=== PATIENT | male | born 1970 | race Caucasian/White ===

== ENCOUNTER 2020-08-12 09:21 | Emergency (ER) | payer SELFPAY ==
[~2020-08-12] VITALS: Ht 187.9 cm; Wt 118.0 kg
[~2020-08-12 09:21] MED LIST: CEPH500C PO; HCA25SU PR; HYDR1TAB PO; SULF1TAB38 PO
[2020-08-12 09:26] VITALS: BP 144/80
--- NOTE | 2020-08-12 09:49 | ED Lower Extremity ---
General Chief Complaint: Lower Extremity Stated Complaint: L KNEE PAIN Nursing Triage Note: AMB TO ROOM REPORTS APX 5 DAYS AGO WAS EXTENDING HIS R LEG OUT AND KNEE STRTED HURTNG. X 5 DAYS Nursing Sepsis Screen: No Definite Risk Source: patient Exam Limitations: no limitations History of Present Illness Date Seen by Provider: Aug 12, 2020 Time Seen by Provider: 09:27 Initial Comments Patient presents ER by private conveyance with chief complaint about 5 days ago he was laying in bed with some restless leg syndrome and so he decided to stret ch his knee out and he did not hear a popping sensation but he feels like he heard something in his knee because now he has pain on ambulation. No prior injury surgery or scopes to the right knee. He has a brace on it and has been using Tylenol and Mullens balm. He is not using NSAIDs. He does not have a primary care doctor yet. Allergies and Home Medications Allergies Coded Allergies: No Known Drug Allergies (Unverified , 09/27/10) Home Medications Hydrocortisone Acetate 1 Ea Supp, 1 EA ND Q8HR FOR RECTAL PAIN Prescribed by: SNEHAL LOPEZ on 05/23/12 1608 Patient Home Medication List Home Medication List Reviewed: Yes Review of Systems Constitutional: No chills, No diaphoresis EENTM: No ear discharge, No ear pain Respiratory: No cough, No phlegm Cardiovascular: No chest pain, No palpitations Gastrointestinal: No abdominal pain, No nausea Genitourinary: No discharge, No dysuria Musculoskeletal: No back pain; joint pain Past Hymeqap-Plrzhc-Ilwzhc Hx Patient Social History Alcohol Use: Occasionally Uses Smoking Status: Current Everyday Smoker Recent Infectious Disease Expo: No Past Medical History Surgeries: Yes (CYST) Respiratory: No Cardiac: No Neurological: No Genitourinary: No Gastrointestinal: No Musculoskeletal: No Endocrine: No HEENT: No Cancer: No Psychosocial: No Physical Exam Vital Signs Vital Signs - First Documented 08/12/20 09:26 Temp 35.4 Pulse 68 Resp 18 B/P (MAP) 144/80 (101) Pulse Ox 94 Capillary Refill : Less Than 3 Seconds Height, Weight, BMI Height: '" Weight: lbs. oz. kg; 33.00 BMI Method:Stated General Appearance: WD/WN, mild distress HEENT: PERRL/EOMI, pharynx normal Neck: full range of motion, normal inspection Cardiovascular: normal peripheral pulses, regular rate, rhythm Respiratory: no respiratory distress, no accessory muscle use Hips: bilateral hip non-tender, bilateral hip normal inspection, bilateral hip normal range of motion, bilateral hip no evidence of injury Legs: bilateral leg non-tender, bilateral leg normal inspection, bilateral leg normal range of motion, bilateral leg no evidence of injury Knees: left knee non-tender, left knee normal inspection; bilateral knee normal range of motion; left knee no evidence of injury; right knee joint effusion (Mild), right knee other (Tenderness on tensioning of the medial collateral ligament.) Neurologic/Tendon: normal sensation, normal motor functions, responds to pain Neurologic/Psychiatric: alert, normal mood/affect, oriented x 3 Skin: normal color, warm/dry Progress/Results/Core Measures Results/Orders Vital Signs/I&O 08/12/20 09:26 Temp 35.4 Pulse 68 Resp 18 B/P (MAP) 144/80 (101) Pulse Ox 94 Blood Pressure Mean: 101 Progress Progress Note : Time: 09:46 Progress Note Continue topical creams, compression, Tylenol. Start NSAIDs. If he is noticing improvement he can start the prednisone. Referral to physical therapy. Encouraged him to follow-up with primary care. He is able to ambulate and on it. He declined a crutch. Departure Impression Primary Impression: Right knee sprain Qualified Codes: S83.411A - Sprain of medial collateral ligament of right knee, initial encounter Disposition: 01 HOME, SELF-CARE Condition: Stable Departure-Patient Inst. Decision time for Depature: 09:45 Referrals: NO,LOCAL PHYSICIAN (PCP) Primary Care Physician JENNIFER ALBARRAN MD Patient Instructions: Knee Sprain (DC) Add. Discharge Instructions: Keep the compression wrap on your knee. Ice your knee if it has swelling. Continue using Tylenol 1000 mg every 8 hours as necessary for pain. Topical creams are helpful. Heat can also be helpful for pain while at rest. Stay off your knee when not necessary. It is okay to ambulate bearing weight as tolerated. Start taking the naproxen 500 mg twice a day for the next 1 to 2 weeks. If you are not seeing improvement in 1 to 2 weeks he can start 5 days of prednisone. 2 tablets daily for 5 days. Will cause increased feeling of energy, increased blood pressure and may cause difficulty sleeping at night. Plan to follow-up with a primary care doctor. You may follow-up with Dr. Albarran, orthopedic surgeon and he can evaluate your knee in the next 2 to 3 weeks after you have completed a course of NSAIDs. Follow-up sooner if your symptoms are worsening. You may call physical therapy at for a no upfront cost initial examination. All discharge instructions reviewed with patient and/or family. Voiced und erstanding. Scripts Naproxen (Naprosyn) 500 Mg Tablet 500 MG PO BID for 14 Days, #30 TAB 0 Refills Prov: NEELAM DELAROSA 08/12/20 Copy Copies To 1: JENNIFER ALBARRAN MD, TITUS J Aug 12, 2020 09:49
[2020-08-12] MEDS ORDERED: NAPR-1071 PO (09:51)
== END 2020-08-12 09:55 | disposition home or self-care (01) ==
LOC: EDUNIT# 09:21 → ER 09:24
DX: S83.411A Sprain of medial collateral ligament of right knee, initial encounter (principal); F17.200 Nicotine dependence, unspecified, uncomplicated; Y93.B9 Activity, other involving muscle strengthening exercises
CPT/HCPCS: 99283